=== PATIENT | female | born 1965 | race Caucasian/White ===

== ENCOUNTER 2018-01-13 11:15 | Emergency (ER) | payer MEDICAID ==
[~2018-01-13] VITALS: Ht 157.5 cm; Wt 60.0 kg
[2018-01-13 11:21] VITALS: BP 136/77
== END 2018-01-13 18:59 | disposition left against medical advice (07) ==
LOC: ER 13:25
DX: Z04.41 Encounter for examination and observation following alleged adult rape (principal); R41.0 Disorientation, unspecified; R58 Hemorrhage, not elsewhere classified; F17.200 Nicotine dependence, unspecified, uncomplicated; Z90.49 Acquired absence of other specified parts of digestive tract
CPT/HCPCS: 99281